=== PATIENT | male | born 1965 | race African-American/Black ===

== ENCOUNTER 2023-11-01 14:59 | Inpatient (IN) | payer OTHER ==
[~2023-11-01] VITALS: Ht 182.9 cm; Wt 78.9 kg
[2023-11-01 15:02] VITALS: BP_SYST 108; PULSE 95; RESP 20; TEMP 98.3; O2SAT 97
[2023-11-01 16:26] LABS: ANION GAP 12 (5-15); CALCIUM 8.4 mg/dL (8.4-11.0); CARBON DIOXIDE 18 mmol/L (23-29); CHLORIDE 102 mmol/L (98-107); CREATININE 4.49 mg/dL (0.55-1.30); GFR AFRICAN AMERICAN 17 mL/min (>90); GLUCOSE 121 mg/dL (74-106); SODIUM SERUM 132 mmol/L (136-145); UREA NITROGEN, BLOOD 83 mg/dL (8-21)
[2023-11-01 16:28] LABS: MEAN CORPUSCULAR HEMOGLOBIN 15 pg (27-31); MEAN CORPUSCULAR HGB CONC 27 % (32-36); MEAN CORPUSCULAR VOLUME 56 fL (79.0-98.0); PLATELET COUNT (AUTO) 429 K/uL (130-430); RED CELL DISTRIBUTION WIDTH 22.4 % (9.0-15.0); WHITE BLOOD COUNT (AUTO) 6.6 K/uL (4.8-10.8)
[2023-11-01 16:29] LABS: GFR NON AFRICAN-AMERICAN 14 mL/min (>90)
[2023-11-01 16:30] LABS: PROTHROMBIN TIME 10.7 SECS (9.5-12.5)
[2023-11-01 16:31] LABS: RED BLOOD CELL COUNT(AUTO) 1.97 MIL/uL (4.2-6.2)
[2023-11-01 16:32] LABS: ALANINE AMINOTRANSFERASE 8 U/L (12-78); ALBUMIN 2.3 g/dL (3.4-4.8); ASPARTATE AMINOTRANSFERASE < 5 U/L (10-37); BILIRUBIN,DIRECT 0.1 mg/dL (0.0-0.3); TOTAL BILIRUBIN 0.2 mg/dL (0.0-1.0); TOTAL PROTEIN, SERUM 6.4 g/dL (6.4-8.3)
[2023-11-01 16:42] LABS: ALCOHOL, BLOOD < 3 mg/dL (<10)
[2023-11-01] MEDS ORDERED: PANTOPRAZOLE SODIUM 80 MG in NS 100 ML IV ONE ×4 (16:45)
[2023-11-01 17:33] LABS: BASOPHILS % (AUTO) 0.3 % (0.0-2.0); EOSINOPHILS % (AUTO) 0.1 % (0.0-4.0); LYMPHOCYTES # (AUTO) 0.9 K/uL (1.0-5.5); LYMPHOCYTES % (AUTO) 12.6 % (20.5-51.5); MEAN CORPUSCULAR HEMOGLOBIN 16 pg (27-31); MEAN CORPUSCULAR HGB CONC 28 % (32-36); MEAN CORPUSCULAR VOLUME 55 fL (79.0-98.0); MONOCYTES # (AUTO) 0.5 K/uL (0.0-1.0); PLATELET COUNT (AUTO) 422 K/uL (130-430); RED CELL DISTRIBUTION WIDTH 22.8 % (9.0-15.0); WHITE BLOOD COUNT (AUTO) 7.5 K/uL (4.8-10.8)
[2023-11-01 17:38] LABS: RED BLOOD CELL COUNT(AUTO) 1.88 MIL/uL (4.2-6.2)
[2023-11-01 17:41] LABS: HEMATOCRIT 10.3 % (36-54); HEMOGLOBIN 2.9 g/dL (14.0-18.0)
[2023-11-01 18:45] LABS: BAND % (MANUAL) 10 % (0-6); BASOPHILS % (MANUAL) 0 % (0-2); EOSINOPHILS % (MANUAL) 1 % (0-7); HYPOCHROMASIA 3+; LYMPHOCYTES % (MANUAL) 7 % (20-46); MONOCYTES % (MANUAL) 5 % (0-11); PLATELET ESTIMATE ADEQUATE (ADEQUATE); POLYCHROMASIA 1+
[2023-11-01 18:46] LABS: ANISOCYTOSIS 3+; OVALOCYTES MODERATE; TEAR DROP CELLS MODERATE
[2023-11-01 21:44] VITALS: BP_SYST 107; PULSE 95; RESP 18; TEMP 97.8
[2023-11-01 21:49] LABS: ANISOCYTOSIS 3+; HYPOCHROMASIA 3+; OVALOCYTES MODERATE; POLYCHROMASIA 1+; TARGET CELLS FEW; TEAR DROP CELLS MODERATE
[2023-11-01] MEDS ORDERED: ACETAMINOPHEN 325 MG TABLET PO PRN (23:00)
[2023-11-01] MEDS ORDERED: LevALBUTEROL HCL 1.25 MG/0.5 ML *CONC.* VIAL.NEB (XOPENEX CONC.) INH PRN (23:15)
[2023-11-02] VITALS: BP_SYST 111; PULSE 78; RESP 18; TEMP 97.8; O2SAT 98
[2023-11-02] MEDS: PANTOPRAZOLE SODIUM 40 MG/VIAL (PROTONIX) IVP SCH ×3 (00:46→22:01)
[2023-11-02] MEDS: LEVOTHYROXINE SODIUM 0.05 MG TABLET PO SCH (06:08)
[2023-11-02 08:20] VITALS: BP_SYST 129; PULSE 82; RESP 18; TEMP 98.7; O2SAT 98
[2023-11-02 08:27] VITALS: O2SAT 97
[2023-11-02] MEDS: BENZTROPINE MESYLATE 1 MG TABLET PO SCH ×2 (09:00→22:01)
[2023-11-02] MEDS: DIVALPROEX SODIUM 500 MG TABLET( DEPAKOTE) PO SCH ×2 (09:00→22:00)
[2023-11-02] MEDS ORDERED: SIMETHICONE 40 MG/0.6 ML ML ONE (09:27)
[2023-11-02] MEDS ORDERED: MIDAZOLAM HCL 5 MG/5 ML VIAL ONE (09:28)
[2023-11-02] MEDS ORDERED: MEPERIDINE 100 MG INJ. 100 MG/ML VIAL ONE (09:29)
[2023-11-02 10:42] LABS: BASOPHILS % (AUTO) 0.2 % (0.0-2.0); EOSINOPHILS % (AUTO) 0.2 % (0.0-4.0); HEMATOCRIT 22.4 % (36-54); HEMOGLOBIN 7.2 g/dL (14.0-18.0); LYMPHOCYTES # (AUTO) 0.4 K/uL (1.0-5.5); MEAN CORPUSCULAR HEMOGLOBIN 23 pg (27-31); MEAN CORPUSCULAR HGB CONC 32 % (32-36); MEAN CORPUSCULAR VOLUME 72 fL (79.0-98.0); MONOCYTES # (AUTO) 0.7 K/uL (0.0-1.0); MONOCYTES % (AUTO) 9.6 % (1.7-9.3); NEUTROPHILS # (AUTO) 5.9 K/uL (1.8-7.7); PLATELET COUNT (AUTO) 363 K/uL (130-430); RED BLOOD CELL COUNT(AUTO) 3.13 MIL/uL (4.2-6.2); RED CELL DISTRIBUTION WIDTH 35.4 % (9.0-15.0)
[2023-11-02 10:56] LABS: CREATININE 3.94 mg/dL (0.55-1.30); PHOSPHORUS 4.5 mg/dL (2.7-4.5)
[2023-11-02 10:57] LABS: TOTAL IRON BIND. CAPACITY 345 ug/dL (250-450)
[2023-11-02] MEDS: NACL 0.9% 1,000 ML IV SCH ×2 (11:02→18:50)
[2023-11-02 16:30] VITALS: BP_SYST 118; PULSE 79; RESP 16; TEMP 98.4; O2SAT 96
[2023-11-02] MEDS: BIMATOPROST 0.01%, 2.5 ML EYE DROPS OP SCH (18:00)
[2023-11-02] MEDS: FINASTERIDE 5 MG TABLET (PROSCAR) PO SCH (18:49)
[2023-11-02] MEDS: TAMSULOSIN HCL 0.4 MG CAP PO SCH (18:49)
[2023-11-02 19:50] VITALS: BP_SYST 121; PULSE 91; RESP 20; TEMP 98.6; O2SAT 97; O2SAT 98
[2023-11-02] MEDS: OLANZapine 10 MG TABLET PO SCH (22:00)
[2023-11-03 01:12] VITALS: BP_SYST 135; PULSE 75; RESP 16; TEMP 97.8; O2SAT 96
[2023-11-03] MEDS: LEVOTHYROXINE SODIUM 0.05 MG TABLET PO SCH (06:54)
[2023-11-03] MEDS: NACL 0.9% 1,000 ML IV SCH ×2 (06:55→21:21)
[2023-11-03 07:24] LABS: BASOPHILS % (AUTO) 0.3 % (0.0-2.0); CALCIUM 7.9 mg/dL (8.4-11.0); CREATININE 3.28 mg/dL (0.55-1.30); EOSINOPHILS % (AUTO) 0.3 % (0.0-4.0); LYMPHOCYTES # (AUTO) 0.7 K/uL (1.0-5.5); LYMPHOCYTES % (AUTO) 11.3 % (20.5-51.5); MEAN CORPUSCULAR HEMOGLOBIN 24 pg (27-31); MEAN CORPUSCULAR HGB CONC 32 % (32-36); MEAN CORPUSCULAR VOLUME 75 fL (79.0-98.0); MONOCYTES # (AUTO) 0.7 K/uL (0.0-1.0); MONOCYTES % (AUTO) 10.7 % (1.7-9.3); NEUTROPHILS # (AUTO) 4.9 K/uL (1.8-7.7); NEUTROPHILS % (AUTO) 77.4 % (40.0-70.0); PLATELET COUNT (AUTO) 341 K/uL (130-430); RED BLOOD CELL COUNT(AUTO) 2.81 MIL/uL (4.2-6.2); RED CELL DISTRIBUTION WIDTH 35.7 % (9.0-15.0); WHITE BLOOD COUNT (AUTO) 6.3 K/uL (4.8-10.8)
[2023-11-03 08:00] VITALS: BP_SYST 97; PULSE 67; RESP 16; TEMP 98.6; O2SAT 95
[2023-11-03 08:01] LABS: HEMOGLOBIN 6.8 g/dL (14.0-18.0)
[2023-11-03 08:07] LABS: FOLATE (FOLIC ACID) 9.5 ng/mL (>3.0)
[2023-11-03] MEDS: FINASTERIDE 5 MG TABLET (PROSCAR) PO SCH (09:07)
[2023-11-03] MEDS: BENZTROPINE MESYLATE 1 MG TABLET PO SCH ×2 (09:07→21:15)
[2023-11-03] MEDS: PANTOPRAZOLE SODIUM 40 MG/VIAL (PROTONIX) IVP SCH ×2 (09:07→21:15)
[2023-11-03] MEDS: TAMSULOSIN HCL 0.4 MG CAP PO SCH (09:08)
[2023-11-03] MEDS: DIVALPROEX SODIUM 500 MG TABLET( DEPAKOTE) PO SCH ×2 (09:08→21:14)
[2023-11-03 11:00] VITALS: O2SAT 95
[2023-11-03 13:30] VITALS: BP_SYST 126; PULSE 91; RESP 16; TEMP 98.7; O2SAT 96
[2023-11-03] MEDS: BIMATOPROST 0.01%, 2.5 ML EYE DROPS OP SCH (18:00)
[2023-11-03 18:40] VITALS: BP_SYST 130; PULSE 85; RESP 17; TEMP 98; O2SAT 99
[2023-11-03 20:00] VITALS: BP_SYST 137; PULSE 88; RESP 20; TEMP 76.6; TEMP 98; O2SAT 100
[2023-11-03] MEDS: OLANZapine 10 MG TABLET PO SCH (21:15)
[2023-11-04] VITALS (8 sets, daily range): BP systolic 114–143; PULSE 63–89; RESP 17–22; TEMP 85.7–99.6; O2SAT 94–100
[2023-11-04] MEDS: NACL 0.9% 1,000 ML IV SCH ×3 (04:08→20:27)
[2023-11-04] MEDS: LEVOTHYROXINE SODIUM 0.05 MG TABLET PO SCH (06:51)
[2023-11-04 07:05] LABS: BASOPHILS % (AUTO) 0.4 % (0.0-2.0); EOSINOPHILS # (AUTO) 0.1 K/uL (0.0-0.4); EOSINOPHILS % (AUTO) 1.3 % (0.0-4.0); HEMOGLOBIN 8.6 g/dL (14.0-18.0); LYMPHOCYTES # (AUTO) 1.3 K/uL (1.0-5.5); LYMPHOCYTES % (AUTO) 20.1 % (20.5-51.5); MEAN CORPUSCULAR HEMOGLOBIN 23 pg (27-31); MEAN CORPUSCULAR HGB CONC 31 % (32-36); MEAN CORPUSCULAR VOLUME 75 fL (79.0-98.0); MONOCYTES # (AUTO) 0.6 K/uL (0.0-1.0); MONOCYTES % (AUTO) 8.5 % (1.7-9.3); NEUTROPHILS # (AUTO) 4.5 K/uL (1.8-7.7); NEUTROPHILS % (AUTO) 69.7 % (40.0-70.0); PLATELET COUNT (AUTO) 346 K/uL (130-430); RED BLOOD CELL COUNT(AUTO) 3.71 MIL/uL (4.2-6.2); RED CELL DISTRIBUTION WIDTH 34.5 % (9.0-15.0); WHITE BLOOD COUNT (AUTO) 6.5 K/uL (4.8-10.8)
[2023-11-04 07:25] LABS: ALANINE AMINOTRANSFERASE 9 U/L (12-78); ALBUMIN 2.1 g/dL (3.4-4.8); ANION GAP 10 (5-15); ASPARTATE AMINOTRANSFERASE < 5 U/L (10-37); CALCIUM 8.5 mg/dL (8.4-11.0); CARBON DIOXIDE 19 mmol/L (23-29); CHLORIDE 110 mmol/L (98-107); CREATININE 2.69 mg/dL (0.55-1.30); GFR AFRICAN AMERICAN 31 mL/min (>90); GLUCOSE 90 mg/dL (74-106); POTASSIUM 5.5 mmol/L (3.5-5.1); SODIUM SERUM 139 mmol/L (136-145); TOTAL BILIRUBIN 0.3 mg/dL (0.0-1.0); TOTAL PROTEIN, SERUM 6.6 g/dL (6.4-8.3); UREA NITROGEN, BLOOD 48 mg/dL (8-21)
[2023-11-04 07:34] LABS: GFR NON AFRICAN-AMERICAN 26 mL/min (>90)
[2023-11-04] MEDS: TAMSULOSIN HCL 0.4 MG CAP PO SCH (08:41)
[2023-11-04] MEDS: PANTOPRAZOLE SODIUM 40 MG/VIAL (PROTONIX) IVP SCH ×2 (08:41→20:27)
[2023-11-04] MEDS: BENZTROPINE MESYLATE 1 MG TABLET PO SCH ×2 (08:41→20:27)
[2023-11-04] MEDS: FINASTERIDE 5 MG TABLET (PROSCAR) PO SCH (08:42)
[2023-11-04] MEDS: DIVALPROEX SODIUM 500 MG TABLET( DEPAKOTE) PO SCH ×2 (08:42→20:26)
[2023-11-04] MEDS ORDERED: SODIUM POLYSTYRENE SULFONATE 15 GM/60 ML UDBTL GT ONE (12:30)
[2023-11-04] MEDS ORDERED: SODIUM BICARBONATE 8.4% JECT 50 MEQ/50 ML SYRINGE IVP ONE (12:30)
[2023-11-04] MEDS: BIMATOPROST 0.01%, 2.5 ML EYE DROPS OP SCH (18:00)
[2023-11-04] MEDS: OLANZapine 10 MG TABLET PO SCH (20:27)
[2023-11-05] VITALS: BP_SYST 148; PULSE 78; RESP 19; TEMP 98.6; O2SAT 98
[2023-11-05] MEDS: LEVOTHYROXINE SODIUM 0.05 MG TABLET PO SCH (06:42)
[2023-11-05 06:49] LABS: BASOPHILS % (AUTO) 0.4 % (0.0-2.0); EOSINOPHILS # (AUTO) 0.2 K/uL (0.0-0.4); EOSINOPHILS % (AUTO) 2.3 % (0.0-4.0); HEMATOCRIT 26.1 % (36-54); HEMOGLOBIN 8.3 g/dL (14.0-18.0); LYMPHOCYTES # (AUTO) 1.4 K/uL (1.0-5.5); LYMPHOCYTES % (AUTO) 18.6 % (20.5-51.5); MEAN CORPUSCULAR HEMOGLOBIN 24 pg (27-31); MEAN CORPUSCULAR HGB CONC 32 % (32-36); MEAN CORPUSCULAR VOLUME 76 fL (79.0-98.0); MONOCYTES # (AUTO) 0.6 K/uL (0.0-1.0); MONOCYTES % (AUTO) 7.9 % (1.7-9.3); NEUTROPHILS # (AUTO) 5.2 K/uL (1.8-7.7); NEUTROPHILS % (AUTO) 70.8 % (40.0-70.0); PLATELET COUNT (AUTO) 344 K/uL (130-430); RED BLOOD CELL COUNT(AUTO) 3.44 MIL/uL (4.2-6.2); RED CELL DISTRIBUTION WIDTH 34.5 % (9.0-15.0); WHITE BLOOD COUNT (AUTO) 7.3 K/uL (4.8-10.8)
[2023-11-05 07:37] LABS: CALCIUM 7.8 mg/dL (8.4-11.0); CREATININE 2.23 mg/dL (0.55-1.30); POTASSIUM 4.4 mmol/L (3.5-5.1)
[2023-11-05 08:20] VITALS: BP_SYST 139; PULSE 71; RESP 16; TEMP 97.8; O2SAT 98
[2023-11-05] MEDS: TAMSULOSIN HCL 0.4 MG CAP PO SCH (08:59)
[2023-11-05] MEDS: FINASTERIDE 5 MG TABLET (PROSCAR) PO SCH (09:00)
[2023-11-05] MEDS: BENZTROPINE MESYLATE 1 MG TABLET PO SCH ×2 (09:00→20:57)
[2023-11-05] MEDS: PANTOPRAZOLE SODIUM 40 MG/VIAL (PROTONIX) IVP SCH ×2 (09:00→20:57)
[2023-11-05] MEDS: DIVALPROEX SODIUM 500 MG TABLET( DEPAKOTE) PO SCH ×2 (09:00→20:57)
[2023-11-05] MEDS: BIMATOPROST 0.01%, 2.5 ML EYE DROPS OP SCH (18:00)
[2023-11-05 18:55] VITALS: O2SAT 98
[2023-11-05 20:00] VITALS: BP_SYST 141; PULSE 80; RESP 16; TEMP 99; O2SAT 95
[2023-11-05] MEDS: NACL 0.9% 1,000 ML IV SCH (20:20)
[2023-11-05] MEDS: OLANZapine 10 MG TABLET PO SCH (20:58)
[2023-11-06] VITALS: BP_SYST 140; PULSE 72; RESP 16; TEMP 98; O2SAT 96
[2023-11-06] MEDS: LEVOTHYROXINE SODIUM 0.05 MG TABLET PO SCH (06:40)
[2023-11-06 08:00] VITALS: O2SAT 98
[2023-11-06 08:44] VITALS: BP_SYST 124; PULSE 97; RESP 17; TEMP 97.1; O2SAT 100
[2023-11-06] MEDS: PANTOPRAZOLE SODIUM 40 MG/VIAL (PROTONIX) IVP SCH ×2 (09:55→20:12)
[2023-11-06] MEDS: NACL 0.9% 1,000 ML IV SCH ×2 (09:56→23:38)
[2023-11-06] MEDS: FINASTERIDE 5 MG TABLET (PROSCAR) PO SCH (09:56)
[2023-11-06] MEDS: TAMSULOSIN HCL 0.4 MG CAP PO SCH (09:56)
[2023-11-06] MEDS: BENZTROPINE MESYLATE 1 MG TABLET PO SCH ×2 (09:56→20:12)
[2023-11-06] MEDS: DIVALPROEX SODIUM 500 MG TABLET( DEPAKOTE) PO SCH ×2 (09:56→20:12)
[2023-11-06 11:45] VITALS: BP_SYST 145; PULSE 58; RESP 16; TEMP 99; O2SAT 98
[2023-11-06 14:22] LABS: BASOPHILS % (AUTO) 0.5 % (0.0-2.0); EOSINOPHILS # (AUTO) 0.1 K/uL (0.0-0.4); EOSINOPHILS % (AUTO) 1.4 % (0.0-4.0); HEMATOCRIT 26.5 % (36-54); HEMOGLOBIN 8.4 g/dL (14.0-18.0); LYMPHOCYTES % (AUTO) 12.3 % (20.5-51.5); MEAN CORPUSCULAR HEMOGLOBIN 25 pg (27-31); MEAN CORPUSCULAR HGB CONC 32 % (32-36); MEAN CORPUSCULAR VOLUME 80 fL (79.0-98.0); MONOCYTES # (AUTO) 0.4 K/uL (0.0-1.0); MONOCYTES % (AUTO) 5.3 % (1.7-9.3); NEUTROPHILS # (AUTO) 6.6 K/uL (1.8-7.7); NEUTROPHILS % (AUTO) 80.5 % (40.0-70.0); PLATELET COUNT (AUTO) 322 K/uL (130-430); RED BLOOD CELL COUNT(AUTO) 3.31 MIL/uL (4.2-6.2); RED CELL DISTRIBUTION WIDTH 34.1 % (9.0-15.0); WHITE BLOOD COUNT (AUTO) 8.2 K/uL (4.8-10.8)
[2023-11-06 16:34] VITALS: BP_SYST 132; PULSE 69; RESP 16; TEMP 98.6; O2SAT 97
[2023-11-06] MEDS: BIMATOPROST 0.01%, 2.5 ML EYE DROPS OP SCH (18:00)
[2023-11-06 20:00] VITALS: BP_SYST 157; PULSE 58; RESP 18; TEMP 99.4; O2SAT 96
[2023-11-06] MEDS: OLANZapine 10 MG TABLET PO SCH (20:12)
[2023-11-07 00:38] VITALS: BP_SYST 130; PULSE 57; RESP 19; TEMP 98.3; O2SAT 99
[2023-11-07 05:22] LABS: BASOPHILS % (AUTO) 0.7 % (0.0-2.0); EOSINOPHILS # (AUTO) 0.1 K/uL (0.0-0.4); EOSINOPHILS % (AUTO) 2.4 % (0.0-4.0); HEMATOCRIT 25.4 % (36-54); HEMOGLOBIN 8.1 g/dL (14.0-18.0); LYMPHOCYTES % (AUTO) 19.8 % (20.5-51.5); MEAN CORPUSCULAR HEMOGLOBIN 25 pg (27-31); MEAN CORPUSCULAR HGB CONC 32 % (32-36); MEAN CORPUSCULAR VOLUME 78 fL (79.0-98.0); MONOCYTES # (AUTO) 0.5 K/uL (0.0-1.0); MONOCYTES % (AUTO) 9.2 % (1.7-9.3); NEUTROPHILS # (AUTO) 3.5 K/uL (1.8-7.7); NEUTROPHILS % (AUTO) 67.9 % (40.0-70.0); PLATELET COUNT (AUTO) 315 K/uL (130-430); RED BLOOD CELL COUNT(AUTO) 3.28 MIL/uL (4.2-6.2); RED CELL DISTRIBUTION WIDTH 34.4 % (9.0-15.0); WHITE BLOOD COUNT (AUTO) 5.2 K/uL (4.8-10.8)
[2023-11-07 05:37] LABS: CALCIUM 8.7 mg/dL (8.4-11.0); CREATININE 1.85 mg/dL (0.55-1.30); POTASSIUM 4.5 mmol/L (3.5-5.1)
[2023-11-07] MEDS: LEVOTHYROXINE SODIUM 0.05 MG TABLET PO SCH (06:08)
[2023-11-07 08:00] VITALS: BP_SYST 130; PULSE 69; RESP 18; TEMP 98.1; O2SAT 98
[2023-11-07] MEDS: PANTOPRAZOLE SODIUM 40 MG/VIAL (PROTONIX) IVP SCH ×2 (09:05→20:46)
[2023-11-07] MEDS: BENZTROPINE MESYLATE 1 MG TABLET PO SCH ×2 (09:05→20:46)
[2023-11-07] MEDS: DIVALPROEX SODIUM 500 MG TABLET( DEPAKOTE) PO SCH ×2 (09:05→20:46)
[2023-11-07] MEDS: TAMSULOSIN HCL 0.4 MG CAP PO SCH (09:05)
[2023-11-07] MEDS: FINASTERIDE 5 MG TABLET (PROSCAR) PO SCH (09:05)
[2023-11-07 11:34] VITALS: BP_SYST 138; PULSE 62; RESP 19; TEMP 98.2; O2SAT 98
[2023-11-07] MEDS: NACL 0.9% 1,000 ML IV SCH (13:52)
[2023-11-07 16:21] VITALS: BP_SYST 135; PULSE 65; RESP 18; TEMP 98; O2SAT 97
[2023-11-07] MEDS ORDERED: BISACODYL 5 MG TABLET.DR (DULCOLAX) PO ONE (17:00)
[2023-11-07] MEDS: BIMATOPROST 0.01%, 2.5 ML EYE DROPS OP SCH (17:53)
[2023-11-07] MEDS ORDERED: GOLYTELY / COLYTE SOLUTION 4 LITERS PO ONE (18:00)
[2023-11-07 20:05] VITALS: BP_SYST 142; PULSE 74; RESP 18; TEMP 98.6; O2SAT 97
[2023-11-07] MEDS: OLANZapine 10 MG TABLET PO SCH (20:46)
[2023-11-08] VITALS (7 sets, daily range): BP systolic 140–154; PULSE 52–62; RESP 16–18; TEMP 97–98.7; O2SAT 95–97
[2023-11-08] MEDS: NACL 0.9% 1,000 ML IV SCH ×3 (03:51→21:58)
[2023-11-08] MEDS: LEVOTHYROXINE SODIUM 0.05 MG TABLET PO SCH (06:21)
[2023-11-08] MEDS ORDERED: MEPERIDINE 100 MG INJ. 100 MG/ML VIAL ONE (07:51)
[2023-11-08] MEDS ORDERED: MIDAZOLAM HCL 5 MG/5 ML VIAL ONE (07:52)
[2023-11-08] MEDS: DIVALPROEX SODIUM 500 MG TABLET( DEPAKOTE) PO SCH ×2 (09:00→21:58)
[2023-11-08] MEDS: FINASTERIDE 5 MG TABLET (PROSCAR) PO SCH (09:00)
[2023-11-08] MEDS: BENZTROPINE MESYLATE 1 MG TABLET PO SCH ×2 (09:00→21:58)
[2023-11-08] MEDS: TAMSULOSIN HCL 0.4 MG CAP PO SCH (09:00)
[2023-11-08] MEDS ORDERED: fentaNYL CITRATE/PF 100 MCG/2 ML AMP ONE (09:04)
[2023-11-08] MEDS: PANTOPRAZOLE SODIUM 40 MG/VIAL (PROTONIX) IVP SCH ×2 (10:36→22:29)
[2023-11-08] MEDS ORDERED: BISACODYL 5 MG TABLET.DR (DULCOLAX) PO ONE (17:00)
[2023-11-08] MEDS: BIMATOPROST 0.01%, 2.5 ML EYE DROPS OP SCH (17:53)
[2023-11-08] MEDS ORDERED: GOLYTELY / COLYTE SOLUTION 4 LITERS PO ONE (18:00)
[2023-11-08] MEDS: OLANZapine 10 MG TABLET PO SCH (21:57)
[2023-11-09] VITALS: BP_SYST 148; PULSE 113; RESP 20; TEMP 97.4; O2SAT 93
[2023-11-09] MEDS: LEVOTHYROXINE SODIUM 0.05 MG TABLET PO SCH (04:55)
[2023-11-09 08:00] VITALS: PULSE 77; O2SAT 95
[2023-11-09 08:30] VITALS: BP_SYST 141; PULSE 62; RESP 19; TEMP 97.7; O2SAT 99
[2023-11-09] MEDS: TAMSULOSIN HCL 0.4 MG CAP PO SCH (09:00)
[2023-11-09] MEDS: FINASTERIDE 5 MG TABLET (PROSCAR) PO SCH (09:00)
[2023-11-09] MEDS: BENZTROPINE MESYLATE 1 MG TABLET PO SCH ×2 (09:00→20:54)
[2023-11-09] MEDS: DIVALPROEX SODIUM 500 MG TABLET( DEPAKOTE) PO SCH ×2 (09:00→20:54)
[2023-11-09] MEDS ORDERED: fentaNYL CITRATE/PF 100 MCG/2 ML AMP ONE (09:56)
[2023-11-09] MEDS ORDERED: MIDAZOLAM HCL 5 MG/5 ML VIAL ONE (09:56)
[2023-11-09] MEDS: PANTOPRAZOLE SODIUM 40 MG/VIAL (PROTONIX) IVP SCH ×2 (11:10→20:27)
[2023-11-09] MEDS: NACL 0.9% 1,000 ML IV SCH (15:39)
[2023-11-09] MEDS: BIMATOPROST 0.01%, 2.5 ML EYE DROPS OP SCH (17:35)
[2023-11-09] MEDS ORDERED: SIMETHICONE 40 MG/0.6 ML ML ONE (18:13)
[2023-11-09 20:17] VITALS: BP_SYST 150; PULSE 69; RESP 16; TEMP 97.5; O2SAT 99
[2023-11-09 20:45] VITALS: O2SAT 99
[2023-11-09] MEDS: OLANZapine 10 MG TABLET PO SCH (20:54)
[2023-11-10 00:29] VITALS: BP_SYST 149; PULSE 55; RESP 16; O2SAT 97
[2023-11-10 05:57] LABS: CALCIUM 8.1 mg/dL (8.4-11.0); CREATININE 1.87 mg/dL (0.55-1.30); POTASSIUM 4.7 mmol/L (3.5-5.1)
[2023-11-10 06:04] LABS: BASOPHILS # (AUTO) 0.1 K/uL (0.0-0.2); BASOPHILS % (AUTO) 1.2 % (0.0-2.0); EOSINOPHILS # (AUTO) 0.2 K/uL (0.0-0.4); EOSINOPHILS % (AUTO) 3.1 % (0.0-4.0); HEMATOCRIT 23.9 % (36-54); HEMOGLOBIN 7.7 g/dL (14.0-18.0); LYMPHOCYTES # (AUTO) 1.6 K/uL (1.0-5.5); LYMPHOCYTES % (AUTO) 23.2 % (20.5-51.5); MEAN CORPUSCULAR HEMOGLOBIN 25 pg (27-31); MEAN CORPUSCULAR HGB CONC 32 % (32-36); MEAN CORPUSCULAR VOLUME 77 fL (79.0-98.0); MONOCYTES # (AUTO) 0.4 K/uL (0.0-1.0); MONOCYTES % (AUTO) 5.5 % (1.7-9.3); NEUTROPHILS # (AUTO) 4.5 K/uL (1.8-7.7); PLATELET COUNT (AUTO) 285 K/uL (130-430); RED BLOOD CELL COUNT(AUTO) 3.09 MIL/uL (4.2-6.2); RED CELL DISTRIBUTION WIDTH 33.4 % (9.0-15.0); WHITE BLOOD COUNT (AUTO) 6.8 K/uL (4.8-10.8)
[2023-11-10] MEDS: LEVOTHYROXINE SODIUM 0.05 MG TABLET PO SCH (06:32)
[2023-11-10] MEDS: NACL 0.9% 1,000 ML IV SCH (06:32)
[2023-11-10 08:00] VITALS: BP_SYST 149; PULSE 89; RESP 17; TEMP 98.1; O2SAT 98
[2023-11-10] MEDS: DIVALPROEX SODIUM 500 MG TABLET( DEPAKOTE) PO SCH (09:32)
[2023-11-10] MEDS: TAMSULOSIN HCL 0.4 MG CAP PO SCH (09:44)
[2023-11-10] MEDS: FINASTERIDE 5 MG TABLET (PROSCAR) PO SCH (09:44)
[2023-11-10] MEDS: BENZTROPINE MESYLATE 1 MG TABLET PO SCH (09:45)
[2023-11-10] MEDS: PANTOPRAZOLE SODIUM 40 MG/VIAL (PROTONIX) IVP SCH (09:47)
[2023-11-10 12:36] VITALS: BP_SYST 160; PULSE 86; RESP 17; TEMP 97.2; O2SAT 96
[2023-11-10] MEDS ORDERED: FOLIC ACID 1 MG TABLET PO ONE (16:30)
[2023-11-10] MEDS ORDERED: FERROUS SULFATE 325 MG TABLET.DR PO ONE (16:30)
[2023-11-10 17:11] VITALS: BP_SYST 149; PULSE 84; RESP 16; TEMP 97.6; O2SAT 95
[2023-11-10 17:16] VITALS: BP_SYST 149; PULSE 89; RESP 17; TEMP 98.1; O2SAT 98
[2023-11-10] MEDS: BIMATOPROST 0.01%, 2.5 ML EYE DROPS OP SCH (18:00)
[2023-11-10] MEDS ORDERED: hydrALAZINE HCL 25 MG TABLET PO ONE (19:30)
[2023-11-10] MEDS ORDERED: FERROUS SULFATE 325 MG TABLET.DR PO SCH (21:00)
[2023-11-11] MEDS ORDERED: FOLIC ACID 1 MG TABLET PO SCH (09:00)
== END 2023-11-10 20:30 | DRG 377 ==
LOC: SED 14:59 → STU 18:45 → SMU 11-08 16:34
PROVIDERS: ADMIT Family Medicine; ATTEND Family Medicine
PROC: 30233N1 Transfusion of Nonautologous Red Blood Cells into Peripheral Vein, Percutaneous Approach (ICD-10-PCS; principal; 2023-11-03)
PROC: 0DB78ZX Excision of Stomach, Pylorus, Via Natural or Artificial Opening Endoscopic, Diagnostic (ICD-10-PCS; 2023-11-08 12:00)
PROC: 0DB78ZZ Excision of Stomach, Pylorus, Via Natural or Artificial Opening Endoscopic (ICD-10-PCS; 2023-11-08 12:00)
PROC: 0DBL8ZZ Excision of Transverse Colon, Via Natural or Artificial Opening Endoscopic (ICD-10-PCS; 2023-11-09)
DX: K29.01 Acute gastritis with bleeding (principal); E43 Unspecified severe protein-calorie malnutrition; N17.0 Acute kidney failure with tubular necrosis; F20.0 Paranoid schizophrenia; N13.30 Unspecified hydronephrosis; D62 Acute posthemorrhagic anemia; I10 Essential (primary) hypertension; K21.9 Gastro-esophageal reflux disease without esophagitis; K64.8 Other hemorrhoids; N40.0 Benign prostatic hyperplasia without lower urinary tract symptoms; K63.5 Polyp of colon; E03.9 Hypothyroidism, unspecified; D64.9 Anemia, unspecified; K64.4 Residual hemorrhoidal skin tags; E86.0 Dehydration; Z20.822 Contact with and (suspected) exposure to COVID-19; Z68.23 Body mass index [BMI] 23.0-23.9, adult
CPT/HCPCS: 36415; 43239; 43251; 45378; 45385; 70450-TC; 71045; 74150-TC; 76376; 80048; 80053; 80076; 82607; 82728; 82746; 83540; 83550; 83735; 84100; 84484; 85007; 85025; 85027; 85610-TC; 85730-TC; 86886; 86900; 86901; 86920; 87081; 88305; 88312; 88313; 93005; 94760; 96365; 99291; C9113; G0378; G0482; J2175; J2250; J3010; P9021